=== PATIENT | female | born 1935 | race Caucasian/White ===

== ENCOUNTER 2017-02-23 19:53 | Observation (INO) | payer MEDICARE ==
[~2017-02-23] VITALS: Ht 170.2 cm; Wt 67.0 kg
[2017-02-23 19:56] VITALS: RESP 18
[2017-02-23] MEDS ORDERED: LISI-515 PO (20:24)
[2017-02-23] MEDS ORDERED: LEVO125T4 PO (20:24)
[2017-02-23] MEDS ORDERED: QUET1TAB7 PO (20:24)
[2017-02-23] MEDS ORDERED: AMLO5TAB2 PO (20:24)
[2017-02-23] MEDS ORDERED: DONE10TA7 PO (20:24)
[2017-02-23] MEDS ORDERED: SODIUM CHLOR 0.9% 1000 ML INJ 1,000 ML IV SCH (20:25)
[2017-02-23] MEDS ORDERED: HALO1TAB PO (20:29)
[2017-02-23] MEDS ORDERED: BENA2CRE2 TOPICAL (20:29)
[2017-02-23] MEDS ORDERED: LORA-474 PO (20:29)
[2017-02-23] MEDS ORDERED: SODIUM CHLORIDE 0.9% FLUSH 5 ML FLUSH IV FLUSH PRN (20:30)
--- NOTE | 2017-02-23 20:35 | PD ---
HPI Chief Complaint: Altered Mental Status Time Seen by Provider: 20:18 Travel History International Travel<30 days: No Contact w/Intl Traveler<30days: No Traveled to known affect area: No History of Present Illness HPI The patient is an 81 year old female who presents to the [facility] emergency department with a history of dementia that has been progressively worsening recently. The patient was not eating or drinking well at home. The patient was recently admitted to an assisted living facility for further assistance with her care according to family at the bedside. She has become increasingly agitated at the facility and refusing to eat or drink. She also refuses to take any medications. Family was called regarding the patient's agitation and the patient's was able to get her to take some of her medications prior to arrival. The patient is confused on arrival. According to the family the patient reportedly had an episode of incontinence was is unusual for her at the assisted living facility and also the urine smelled strong according to the staff. Otherwise, as the patient is confused on arrival , review of systems is limited to what is provided by the patient's family. According to them she has not had any vomiting or diarrhea. She has not been experiencing any cough or congestion. She has not had any noted fevers. They deny her having any new onset of one-sided weakness or slurred speech. [facility] Past Medical History Narrative Medical The patient's past medical history is significant for dementia, hypertension, hyperlipidemia Alzheimer's Disease: Yes High Cholesterol: Yes Hypertension: Yes : 3 Para: 3 Past Surgical History Narrative Surgical The patient's past surgical history is significant for a right knee replacement , hysterectomy, cholecystectomy. Cholecystectomy: Yes Hysterectomy: Yes Social History Alcohol Use: No Tobacco Use: No Substance Use: No Allergies-Medications (Allergen,Severity, Reaction): Coded Allergies: No Known Allergies (Unverified , 02/23/17) Reported Meds & Prescriptions Reported Meds & Active Scripts Active Reported Haloperidol 1 Mg Tab 1 Mg PO DAILY Benadryl Extra Strength Topical (Diphenhydramine-Zinc Topical) 2-0.1% Cream 1 Applic TOPICAL ONCE PRN Ativan (Lorazepam) 1 Mg Tab 1 Mg PO DAILY PRN Amlodipine (Amlodipine Besylate) 5 Mg Tab 5 Mg PO DAILY Lisinopril 20 Mg Tab 20 Mg PO DAILY Levothyroxine (Levothyroxine Sodium) 125 Mcg Tab 125 Mcg PO DAILY Quetiapine (Quetiapine Fumarate) 25 Mg Tab 25 Mg PO DAILY Donepezil 10 Mg Tab 10 Mg PO HS Review of Systems Except as stated in HPI: all other systems reviewed are Neg General / Constitutional: No: Fever Eyes: No: Visual changes HENT: No: Headaches Cardiovascular: No: Chest Pain or Discomfort Respiratory: No: Shortness of Breath Gastrointestinal: No: Nausea, Vomiting, Diarrhea, Abdominal Pain Genitourinary: Positive: Incontinence, No: Dysuria Skin: No Rash Neurologic: Positive: Change in Mentation, No: Weakness, Focal Abnormalities, Slurred Speech Psychiatric: Positive: Other (agitation) Endocrine: No: Polydipsia Hematologic/Lymphatic: No: Easy Bruising Physical Exam Narrative General: The patient is a well-developed well-nourished female in no acute distress. Head and Neck exam: Head is normocephalic atraumatic. Eyes: EOMI, pupils are equal round and reactive to light. Nose: Midline septum with pink mucous membranes Mouth: Dentition unremarkable. Dry mucus membranes. Posterior oropharynx is not erythematous. No tonsillar hypertrophy. Uvula midline. Airway patent. Neck: No palpable lymphadenopathy. No nuchal rigidity. No thyromegaly. Cardiovascular: Regular rate and rhythm without murmurs, gallops, or rubs. No pulse deficit to the extremities and simultaneous auscultation and palpation of her radial artery. Lungs: Clear to auscultation bilaterally. No wheezes, rhonchi, or rales. Abdomen: Soft, without tenderness to palpation in all 4 quadrants of the abdomen. No guarding, rebound, or rigidity. Normal bowel sounds are audible. No tenderness on palpation of McBurney's point. Negative Windsor sign. Extremities: No clubbing, cyanosis, or edema. 2+ pulses in all 4 extremities. No calf tenderness on palpation. Back: No costovertebral angle tenderness to palpation. Neurologic Exam: Cranial nerves 2-12 were intact on exam. Strength is 5/5 in all 4 extremities. No sensory deficits noted. Skin Exam: No rash noted. Intact skin that is warm and dry. Poor skin turgor. Data Data Last Documented VS Vital Signs Date Time Temp Pulse Resp B/P Pulse Ox O2 Delivery O2 Flow Rate FiO2 02/23/17 22:59 75 16 114/64 99 Room Air Orders Electrocardiogram (02/23/17 20:25) Ammonia (02/23/17 20:25) Complete Blood Count With Diff (02/23/17 20:25) Comprehensive Metabolic Panel (02/23/17 20:25) Creatine Kinase (Cpk) (02/23/17 20:25) Prothrombin Time / Inr (Pt) (02/23/17 20:25) Act Partial Throm Time (Ptt) (02/23/17 20:25) Troponin I (02/23/17 20:25) Thyroid Stimulating Hormone (02/23/17 20:25) Urinalysis - C+S If Indicated (02/23/17 20:25) Chest, Single Ap (02/23/17 20:25) Blood Glucose (02/23/17 20:25) Ecg Monitoring (02/23/17 20:25) Iv Access Insert/Monitor (02/23/17 20:25) Cath For Specimen (02/23/17 20:25) Oximetry (02/23/17 20:25) Sodium Chloride 0.9% Flush (Ns Flush) (02/23/17 20:30) Sodium Chlor 0.9% 1000 Ml Inj (Ns 1000 M (02/23/17 20:25) Lorazepam Inj (Ativan Inj) (02/23/17 21:00) Sodium Chlorid 0.9% 500 Ml Inj (Ns 500 M (02/23/17 21:00) Lorazepam Inj (Ativan Inj) (02/23/17 20:52) Urine Culture (02/23/17 21:00) Sodium Chlor 0.9% 250 Ml Inj (Ns 250 Ml (02/23/17 22:45) Admit Order (Ed Use Only) (02/23/17 23:12) Labs Laboratory Tests Test 02/23/17 02/23/17 20:55 21:00 White Blood Count 4.6 TH/MM3 Red Blood Count 4.71 MIL/MM3 Hemoglobin 12.6 GM/DL Hematocrit 39.8 % Mean Corpuscular Volume 84.5 FL Mean Corpuscular Hemoglobin 26.8 PG Mean Corpuscular Hemoglobin 31.7 % Concent Red Cell Distribution Width 15.8 % Platelet Count 165 TH/MM3 Mean Platelet Volume 10.1 FL Neutrophils (%) (Auto) 58.8 % Lymphocytes (%) (Auto) 28.6 % Monocytes (%) (Auto) 7.0 % Eosinophils (%) (Auto) 3.0 % Basophils (%) (Auto) 2.6 % Neutrophils # (Auto) 2.7 TH/MM3 Lymphocytes # (Auto) 1.3 TH/MM3 Monocytes # (Auto) 0.3 TH/MM3 Eosinophils # (Auto) 0.1 TH/MM3 Basophils # (Auto) 0.1 TH/MM3 CBC Comment DIFF FINAL Differential Comment Prothrombin Time 10.7 SEC Prothromb Time International 1.0 RATIO Ratio Activated Partial 26.6 SEC Thromboplast Time Sodium Level 144 MEQ/L Potassium Level 3.9 MEQ/L Chloride Level 107 MEQ/L Carbon Dioxide Level 26.8 MEQ/L Anion Gap 10 MEQ/L Blood Urea Nitrogen 43 MG/DL Creatinine 1.47 MG/DL Estimat Glomerular Filtration 34 ML/MIN Rate Random Glucose 91 MG/DL Calcium Level 10.0 MG/DL Total Bilirubin 0.4 MG/DL Aspartate Amino Transf 14 U/L (AST/SGOT) Alanine Aminotransferase 16 U/L (ALT/SGPT) Alkaline Phosphatase 75 U/L Ammonia LESS THAN 10 MCMOL/L Total Creatine Kinase 52 U/L Troponin I LESS THAN 0.02 NG/ML Total Protein 8.3 GM/DL Albumin 4.0 GM/DL Thyroid Stimulating Hormone 15.800 uIU/ML 3rd Gen Urine Color YELLOW Urine Turbidity CLEAR Urine pH 5.5 Urine Specific [place] 1.023 Urine Protein TRACE mg/dL Urine Glucose (UA) NEG mg/dL Urine Ketones 10 mg/dL Urine Occult Blood NEG Urine Nitrite NEG Urine Bilirubin NEG Urine Urobilinogen LESS THAN 2.0 MG/DL Urine Leukocyte Esterase NEG Urine RBC LESS THAN 1 /hpf Urine WBC 1 /hpf Urine Squamous Epithelial 1 /hpf Cells Urine Bacteria RARE /hpf Microscopic Urinalysis Comment CATH-CULTURE IND MDM Medical Decision Making Medical Screen Exam Complete: Yes Emergency Medical Condition: Yes Medical Record Reviewed: Yes Interpretation(s) Last Impressions Chest X-Ray 02/23/172024 Signed Impressions: Service Date/Time: Thursday, February 23, 2017 20:40 - CONCLUSION: No acute disease. Salvador Enriquez MD Differential Diagnosis Dehydration, versus electrolyte derangement, versus urinary tract infection, versus other infectious process such as pneumonia Narrative Course During the course of the patients emergency department visit, the patients history, examination, and differential diagnosis were reviewed with the patient. The patient had IV access obtained and blood work sent for analysis. The patient was placed on a personnel monitor with oximetry and blood pressure monitoring. An EKG was done on arrival. The patient's EKG shows a sinus bradycardia rate 57, no acute ST segment elevation or depression. T waves are inverted in V1, lead 3, QRS duration 81 ms, QTC 389 ms. The patient was initially provided normal saline a 500 mL bolus 1. The patient was given Ativan 0.5 mg IV for acute agitation. The patients laboratory studies were reviewed and remarkable for a CBC that shows a white count of 4.6, HemoCue 12.6, platelets 165 with 2.6 basophils, CMP is remarkable for a BUN of 43, creatinine 1.47, CPK 52, troponin I less than 0.02, ammonia level less than 10, TSH is elevated at 15.8. From reviewing the record the patient does have a history of hypothyroid disorder and is reportedly on Synthroid 125 g. Elevated TSH may be related to medication noncompliance, versus the fact that the patient needs an increase in her dose. Urinalysis shows 10 ketones consistent with dehydration otherwise unremarkable. PT PTT within normal limits. Radiology studies were reviewed and remarkable for a chest x-ray that shows no acute abnormality. I spoke to the patient's hospice nurse. The patient has been newly involved in hospice care. We discussed admission for observation. They report that the hospice care nurse will be out to see the patient again tomorrow at the assisted living facility when she is discharged back. The patients results were discussed with the patient, including the plan of care. I explained that further testing and/ or monitoring is indicated based on the patients history, examination, and/ or laboratory findings. Therefore, I recommended admission for additional evaluation. The patient expressed understanding and was agreeable with this plan. The patient was admitted to the hospital in stable condition and [facility] Physician Communication Physician Communication I spoke to to the hospice care center regarding this patient's evaluation. They agreed that the patient should be admitted for observation and that they will be able to assist with the patient's care back at the assisted living facility. The patient's case was discussed with Dr. Shabazz who did agree to admit the patient for further evaluation and treatment at this time. Diagnosis Primary Impression: Altered mental status Qualified Code: R41.0 - Disorientation Additional Impressions: Dehydration Elevated TSH Hypothyroid Qualified Code: E03.9 - Hypothyroidism, unspecified type Admitting Information Admitting Physician Requests: Observation Rosalina Vines MD Feb 23, 2017 20:35
[2017-02-23] MEDS ORDERED: LORazepam 2 MG/ML VIAL ONE (20:52)
[2017-02-23] MEDS ORDERED: SODIUM CHLORID 0.9% 500 ML INJ 500 ML IV ONE (21:00)
[2017-02-23] MEDS ORDERED: LORazepam 2 MG/ML VIAL IV PUSH ONE (21:00)
--- NOTE | 2017-02-23 21:06 | RADRPT ---
EXAM DATE/TIME: 02/23/2017 20:40 [place] COMPARISON: No previous studies available for comparison. INDICATIONS : Altered mental status. MEDICAL HISTORY : Hypercholesterolemia. Hypertension Alzeheimers disease. SURGICAL HISTORY : Hysterectomy. Cholecystectomy. ENCOUNTER: Initial ACUITY: 1 day PAIN SCORE: Non-responsive. LOCATION: Bilateral chest FINDINGS: A single view of the chest demonstrates the lungs to be symmetrically aerated without evidence of mas s, infiltrate or effusion. The cardiomediastinal contours are unremarkable. Osseous structures are intact. Clips are seen in the right upper quadrant of the abdomen. CONCLUSION: No acute disease. Salvador Enriquez MD on February 23, 2017 at 21:04 Board Certified Radiologist. This report was verified electronically.
[2017-02-23 21:08] VITALS: O2SAT 97
[2017-02-23 21:19] LABS: AUTOMATED NEUTROPHIL # 2.7 TH/MM3 (1.8-7.7); BASOPHIL # 0.1 TH/MM3 (0-0.2); BASOPHIL % 2.6 % (0.0-2.0); EOSINOPHIL # 0.1 TH/MM3 (0-0.4); HEMATOCRIT 39.8 % (35.0-46.0); HEMO FLAGS DIFF FINAL; LYMPH % 28.6 % (9.0-44.0); LYMPHOCYTE # 1.3 TH/MM3 (1.0-4.8); MEAN CELL VOLUME 84.5 FL (80.0-100.0); MEAN CORPUSCULAR HEMOGLOBIN 26.8 PG (27.0-34.0); MEAN CORPUSCULAR HGB CONC 31.7 % (32.0-36.0); NEUT % 58.8 % (16.0-70.0); PLATELET COUNT 165 TH/MM3 (150-450); RED BLOOD COUNT 4.71 MIL/MM3 (4.00-5.30); RED CELL DISTRIBUTION WIDTH 15.8 % (11.6-17.2); WHITE BLOOD COUNT 4.6 TH/MM3 (4.0-11.0)
[2017-02-23 21:26] LABS: BACTERIA, URINE RARE /hpf; BLOOD, URINE NEG (NEG); GLUCOSE,URINE NEG (NEG); KETONE, URINE 10 mg/dL (NEG); NITRITE,URINE NEG (NEG); PH, URINE 5.5 (5.0-8.5); SQUAMOUS EPITHELIAL CELL URINE 1 /hpf (0-5); URINE COLOR YELLOW (YELLW/STRAW)
[2017-02-23 21:29] LABS: APTT (PATIENT) 26.6 SEC (24.3-30.1); PROTHROMBIN TIME - PATIENT 10.7 SEC (9.8-11.6)
[2017-02-23 21:37] LABS: COMMENT (UR) CATH-CULTURE IND; CULTURE IF INDICATED CATH CULTURE IND
[2017-02-23 21:50] LABS: CHLORIDE 107 MEQ/L (98-107); POTASSIUM 3.9 MEQ/L (3.5-5.1); SODIUM (NA) 144 MEQ/L (136-145)
[2017-02-23] MEDS ORDERED: SODIUM CHLOR 0.9% 250 ML INJ 250 ML IV ONE (22:45)
[2017-02-23 22:56] LABS: ALKALINE PHOSPHATASE 75 U/L (45-117); ALT (GPT) 16 U/L (10-53); ANION GAP 10 MEQ/L (5-15); AST (GOT) 14 U/L (15-37); BICARBONATE 26.8 MEQ/L (21.0-32.0); BLOOD UREA NITROGEN 43 MG/DL (7-18); GLOMERULAR FILTRATION RATE 34 ML/MIN (>89); TOTAL BILIRUBIN ADULT 0.4 MG/DL (0.2-1.0)
[2017-02-23 22:59] VITALS: BP 114/64; PULSE 75; RESP 16; O2SAT 99
[2017-02-23 23:01] LABS: CREATINE KINASE 52 U/L (26-192)
[2017-02-23] MEDS ORDERED: SODIUM CHLORIDE 0.9% FLUSH 10 ML FLUSH IV FLUSH PRN (23:30)
[2017-02-23] MEDS ORDERED: NALOXONE HCL 0.4 MG/ML AMP IV PRN (23:30)
[2017-02-24 00:41] VITALS: BP 101/60; PULSE 63; RESP 16; TEMP 96.6; O2SAT 95
[2017-02-24 03:03] VITALS: PULSE 62
[2017-02-24 08:05] VITALS: BP 114/61; PULSE 61; RESP 16; TEMP 98.5; O2SAT 96
--- NOTE | 2017-02-24 08:28 | HHI.HP ---
[facility] Service [facility] Primary Care Physician Unknown Admission Diagnosis Dehydration Diagnoses: Chief Complaint: AMS Travel History International Travel<30 Days: No Contact w/Intl Traveler <30 Da: No Traveled to Known Affected Are: No History of Present Illness Written by Cecelia Diaz, acting as scribe for Dr. Chatman on 02/24/17 at 08: 28. 81-year-old female with history of dementia, hypothyroidism, hypertension, presents from [facility] for altered mental status. Currently the patient is seen in observation, she is very drowsy, snoring, and does not participate in any conversation therefore history is very limited, mostly obtained from family and EMR. Patient's daughter is at bedside who assists with the history. The daughter reports the patient's Hossein is [id number]; he started having a difficult time taking care of her, and he found placement for her at an [facility] 4days ago. Since she's been at the [facility], the patient has not been doing well. She has been refusing her medications occasionally, not eating well, not sleeping well, and not participating in activities. The daughter reports she is now much more confused than her baseline. Because of her not taking her medications and not sleeping well, the [facility] started her on an ABH topical gel which includes Ativan, Benadryl, and Haldol. They also increased her Seroquel to 50mg hs. At baseline 1 week ago, the patient ambulates independently without any assistive device; and she is typically not oriented to place or time but does recognize her Hossein. Review of Systems ROS Limitations: Altered Mental Status, Poor Historian Past Family Social History Past Medical History Hypertension Hypothyroidism Dementia Past Surgical History Hysterectomy Right Knee Arthroplasty Cataract surgery Cholecystectomy Reported Medications ABH Gel (which includes Haldol, Benadryl, and Ativan) Amlodipine (Amlodipine Besylate) 5 Mg Tab 5 Mg PO DAILY Lisinopril 20 Mg Tab 20 Mg PO DAILY Levothyroxine (Levothyroxine Sodium) 125 Mcg Tab 125 Mcg PO DAILY Quetiapine (Quetiapine Fumarate) 25 Mg Tab 25 Mg PO DAILY Donepezil 10 Mg Tab 10 Mg PO HS Allergies: Coded Allergies: No Known Allergies (Unverified , 02/24/17) Active Ordered Medications Current Medications Medications (Trade) Dose Ordered Sig/King Route Start Time Stop Time Status Last Admin (NS Flush) 2 ml UNSCH PRN IV FLUSH 02/23/17 23:30 (NS Flush) 2 ml BID IV FLUSH 02/24/17 09:00 (Narcan Inj) 0.4 mg UNSCH PRN IV 02/23/17 23:30 (Aricept) 10 mg HS PO 02/24/17 21:00 (Haldol) 1 mg DAILY PO 02/24/17 09:00 (Synthroid) 125 mcg DAILY@06 PO 02/24/17 07:09 (SEROquel) 25 mg HS PO 02/24/17 21:00 Family History Father with liver cancer Mother lived to age 104 Social History Denies any tobacco, alcohol, or illicit drug use Residing at an [facility] Ambulates independently Physical Exam Vital Signs Vital Signs Date Time Temp Pulse Resp B/P Pulse Ox O2 Delivery O2 Flow Rate FiO2 02/24/17 08:05 98.5 61 16 114/61 96 02/24/17 03:03 62 02/24/17 00:41 96.6 63 16 101/60 95 02/23/17 22:59 75 16 114/64 99 Room Air 02/23/17 21:08 97 Room Air 02/23/17 19:56 18 Room Air Physical Exam GENERAL: Well-nourished, well-developed elderly female patient in [facility]. SKIN: Warm and dry. No rash. HEAD: Normocephalic. Atraumatic. EYES: Pupils equal and round. No scleral icterus. No injection or drainage. ENT: No nasal bleeding or discharge. Mucous membranes pink and moist. NECK: Supple. Trachea midline. CARDIOVASCULAR: Regular rate and rhythm. S1, S2 noted. No murmur appreciated. RESPIRATORY: No accessory muscle use. Clear to auscultation. Breath sounds equal bilaterally. GASTROINTESTINAL: Abdomen soft, non-tender, nondistended. Normoactive bowel sounds x4. MUSCULOSKELETAL: No obvious deformities. Extremities without clubbing, cyanosis , or edema. NEUROLOGICAL: No obvious cranial nerve deficits. Motor grossly within normal limits. Speech not assessed. No obvious facial droop/lid lag. PSYCHIATRIC: Drowsy; insight and judgment poor. Laboratory Laboratory Tests Test 02/23/17 02/23/17 20:55 21:00 White Blood Count 4.6 Red Blood Count 4.71 Hemoglobin 12.6 Hematocrit 39.8 Mean Corpuscular Volume 84.5 Mean Corpuscular Hemoglobin 26.8 Mean Corpuscular Hemoglobin 31.7 Concent Red Cell Distribution Width 15.8 Platelet Count 165 Mean Platelet Volume 10.1 Neutrophils (%) (Auto) 58.8 Lymphocytes (%) (Auto) 28.6 Monocytes (%) (Auto) 7.0 Eosinophils (%) (Auto) 3.0 Basophils (%) (Auto) 2.6 Neutrophils # (Auto) 2.7 Lymphocytes # (Auto) 1.3 Monocytes # (Auto) 0.3 Eosinophils # (Auto) 0.1 Basophils # (Auto) 0.1 CBC Comment DIFF FINAL Differential Comment Prothrombin Time 10.7 Prothromb Time International 1.0 Ratio Activated Partial 26.6 Thromboplast Time Sodium Level 144 Potassium Level 3.9 Chloride Level 107 Carbon Dioxide Level 26.8 Anion Gap 10 Blood Urea Nitrogen 43 Creatinine 1.47 Estimat Glomerular Filtration 34 Rate Random Glucose 91 Calcium Level 10.0 Total Bilirubin 0.4 Aspartate Amino Transf 14 (AST/SGOT) Alanine Aminotransferase 16 (ALT/SGPT) Alkaline Phosphatase 75 Ammonia LESS THAN 10 Total Creatine Kinase 52 Troponin I LESS THAN 0.02 Total Protein 8.3 Albumin 4.0 Thyroid Stimulating Hormone 15.800 3rd Gen Urine Color YELLOW Urine Turbidity CLEAR Urine pH 5.5 Urine Specific [place] 1.023 Urine Protein TRACE Urine Glucose (UA) NEG Urine Ketones 10 Urine Occult Blood NEG Urine Nitrite NEG Urine Bilirubin NEG Urine Urobilinogen LESS THAN 2.0 Urine Leukocyte Esterase NEG Urine RBC LESS THAN 1 Urine WBC 1 Urine Squamous Epithelial 1 Cells Urine Bacteria RARE Microscopic Urinalysis Comment CATH-CULTURE IND Date/Time Procedure Status Source Growth 02/23/17 21:00 Urine Culture Received Urine Catheterized Urine Pending Result Diagram: 02/23/17205402/23/172054 Imaging Last Impressions Chest X-Ray 02/23/172024 Signed Impressions: Service Date/Time: Thursday, February 23, 2017 20:40 - CONCLUSION: No acute disease. Salvador Enriquez MD Assessment and Plan Problem List: (1) Altered mental status ICD Code: R41.82 Status: Acute (2) Dehydration ICD Code: E86.0 Status: Acute (3) Elevated TSH ICD Code: R94.6 Status: Acute (4) TACOS (acute kidney injury) ICD Code: N17.9 Status: Acute Assessment and Plan 81-year-old female with history of dementia, hypothyroidism, hypertension, presents from [facility] for altered mental status. Toxic and Metabolic Encephalopathy: patient presented with AMS, suspect multifactorial secondary to new medication ABH gel (Ativan/Benadryl/Haldol) and dehydration, in addition to poor sleep, poor oral intake, and not taking medications. -afebrile, no leukocytosis, and UA and CXR unremarkable; no signs of infection -Head CT images reviewed, no acute findings -discontinue ABH gel -give IVF hydration -monitor neuro checks -continue patient's seroquel 50mg hs -swallow eval with ST TACOS: Cr 1.47, no previous labs to compare, suspect secondary to dehydration with recent poor oral intake. -Give IVF -avoid nephrotoxins -repeat BMP -encourage oral intake Dementia: not at baseline (see above) -continue patient's Aricept -hold sedating medications, especially benzodiazepines in elderly with dementia -monitor for improvement Hypothyroidism with Elevated TSH: suspect secondary to noncompliance with levothyroxine, TSH over 15. -check T3/free T4 -continue patient's Synthroid -repeat TSH in 6 weeks Hypertension: blood pressure currently borderline hypotensive with BP 101/60. Suspect secondary to dehydration. -hold patient's lisinopril and amlodipine for now -monitor BP, restart antihypertensives as needed. DVT Prophylaxis: teds/SCDs Case management to assist with discharge planning, will likely return to [facility] at discharge. This note was transcribed by deo [Cecelia Diaz]. I, Dr. Italo Chatman personally performed the history, physical exam, and medical decision making; and confirmed the accuracy of the information in the transcribed note. Authenticated by Dr. Italo Chatman on 02/24/17 at 16:03. Discussed Condition With Patient, Patient's daughter at bedside, RN, community development manager Problem Qualifiers (1) Altered mental status: Qualified Code: R41.0 - Disorientation Cecelia Diaz PA-C Feb 24, 2017 8:28 am Italo Chatman MD Feb 24, 2017 4:03 pm
[2017-02-24] MEDS: SODIUM CHLOR 0.9% 1000 ML INJ 1,000 ML IV SCH ×3 (08:45→18:17)
[2017-02-24] MEDS ORDERED: HALOPERIDOL 1 MG TAB PO SCH (09:00)
[2017-02-24 09:17] LABS: AUTOMATED NEUTROPHIL # 2.3 TH/MM3 (1.8-7.7); BASOPHIL % 1.3 % (0.0-2.0); EOSINOPHIL # 0.2 TH/MM3 (0-0.4); HEMATOCRIT 37.5 % (35.0-46.0); HEMO FLAGS DIFF FINAL; LYMPH % 25.7 % (9.0-44.0); MEAN CELL VOLUME 84.4 FL (80.0-100.0); MEAN CORPUSCULAR HEMOGLOBIN 26.8 PG (27.0-34.0); MEAN CORPUSCULAR HGB CONC 31.8 % (32.0-36.0); MONO % 7.4 % (0.0-8.0); NEUT % 61.6 % (16.0-70.0); PLATELET COUNT 153 TH/MM3 (150-450); RED BLOOD COUNT 4.44 MIL/MM3 (4.00-5.30); WHITE BLOOD COUNT 3.8 TH/MM3 (4.0-11.0)
[2017-02-24 09:48] LABS: FREE T3 1.23 PG/ML (2.18-3.98); FREE T4 1.23 NG/DL (0.76-1.46)
[2017-02-24 10:18] LABS: BICARBONATE 27.2 MEQ/L (21.0-32.0); POTASSIUM 3.9 MEQ/L (3.5-5.1)
[2017-02-24] MEDS: SODIUM CHLORIDE 0.9% FLUSH 10 ML FLUSH IV FLUSH SCH ×2 (10:25→21:00)
[2017-02-24] MEDS: LEVOTHYROXINE SODIUM 125 MCG TAB PO SCH (10:39)
[2017-02-24] MEDS ORDERED: HALOPERIDOL LACTATE 5 MG/ML AMP IM ONE ×2 (11:45→12:00)
[2017-02-24 15:48] VITALS: BP 154/72; PULSE 84; RESP 16; O2SAT 96
[2017-02-24] MEDS: DONEPEZIL HCL 5 MG TAB PO SCH (18:15)
[2017-02-24] MEDS: QUEtiapine FUMARATE 25 MG TAB PO SCH (18:15)
[2017-02-24 19:49] VITALS: BP 128/86; PULSE 68; RESP 16; TEMP 98.7; O2SAT 90
[2017-02-24] MEDS: HALOPERIDOL LACTATE 5 MG/ML AMP IM PRN (20:02)
[2017-02-24] MEDS ORDERED: DONEPEZIL HCL 5 MG TAB PO SCH (21:00)
[2017-02-24] MEDS ORDERED: QUEtiapine FUMARATE 25 MG TAB PO SCH ×2 (21:00)
--- NOTE | 2017-02-24 23:19 | EKG ---
Date Performed: 02/23/2017 Time Performed: 20:58:13 PTAGE: 81 years EKG: SINUS BRADYCARDIA BORDERLINE ECG NO PREVIOUS TRACING DOCTOR: Angelique Mooney Interpretating Date/Time 02/24/2017 23:18:05
[2017-02-25] MEDS: SODIUM CHLOR 0.9% 1000 ML INJ 1,000 ML IV SCH ×3 (01:16→20:52)
[2017-02-25] MEDS: HALOPERIDOL LACTATE 5 MG/ML AMP IM PRN (06:03)
[2017-02-25 06:09] VITALS: BP 145/74; PULSE 91; RESP 18; O2SAT 98
[2017-02-25] MEDS: LEVOTHYROXINE SODIUM 125 MCG TAB PO SCH (06:09)
[2017-02-25 08:32] VITALS: BP 130/62; PULSE 60; RESP 16; TEMP 97.9; O2SAT 100
[2017-02-25] MEDS: SODIUM CHLORIDE 0.9% FLUSH 10 ML FLUSH IV FLUSH SCH ×2 (09:00→20:50)
[2017-02-25 10:53] VITALS: BP 128/59; PULSE 73; RESP 16; TEMP 98.2; O2SAT 96
--- NOTE | 2017-02-25 13:27 | HHI.PR ---
Subjective Remarks Follow up for AMS. The patient is currently sleeping, awakens to light touch. She states "oh I just want to sleep a little longer". She denies any pain. Denies any medical complaints. , daughter, granddaughter at bedside, discussed extensively. Patient did drink all of her Ensure shake this morning however did not touch any of her food. Patient received Haldol at 8pm last night and again at 6am today for agitation. Family concerned patient will become agitated at the NED if discharged today and the NED would not be able to give her IM Haldol. Discussed discontinuing haldol for now and monitoring the patient again overnight, trying to avoid Haldol if possible. Family is comfortable with this plan. Family requesting if patient can be discharged early tomorrow before lunch time if she is stable. Objective Vitals Vital Signs Date Time Temp Pulse Resp B/P Pulse Ox O2 Delivery O2 Flow Rate FiO2 02/25/17 10:53 98.2 73 16 128/59 96 02/25/17 08:32 97.9 60 16 130/62 100 02/25/17 06:09 91 18 145/74 98 02/24/17 19:49 98.7 68 16 128/86 90 02/24/17 15:48 84 16 154/72 96 I/O 02/24/17 02/24/17 02/24/17 02/25/17 02/25/17 02/25/17 07:00 15:00 23:00 07:00 15:00 23:00 Intake Total 950 ml Output Total 200 ml Balance 950 ml -200 ml Intake IV Total 950 ml Output Urine Total 200 ml # Bowel Movements 0 Result Diagram: 02/24/17 0859 02/24/17 0859 Imaging Last Impressions Chest X-Ray 02/23/172024 Signed Impressions: Service Date/Time: Thursday, February 23, 2017 20:40 - CONCLUSION: No acute disease. Salvador Enriquez MD Objective Remarks GENERAL: Well-nourished, well-developed elderly female patient in [facility]. SKIN: Warm and dry. No rash. HEENT: Normocephalic. Atraumatic.Pupils equal and round. Mucous membranes pink and moist. NECK: Supple. Trachea midline. CARDIOVASCULAR: Regular rate and rhythm. S1, S2 noted. No murmur appreciated. RESPIRATORY: No accessory muscle use. Clear to auscultation. Breath sounds equal bilaterally. GASTROINTESTINAL: Abdomen soft, non-tender, nondistended. Normoactive bowel sounds x4. MUSCULOSKELETAL: No obvious deformities. Extremities without clubbing, cyanosis , or edema. NEUROLOGICAL: No obvious cranial nerve deficits. Motor grossly within normal limits. Speech normal. No obvious facial droop/lid lag. PSYCHIATRIC: Drowsy; insight and judgment poor. Medications and IVs Current Medications Medications (Trade) Dose Ordered Sig/King Route Start Time Stop Time Status Last Admin (NS Flush) 2 ml UNSCH PRN IV FLUSH 02/23/17 23:30 (NS Flush) 2 ml BID IV FLUSH 02/24/17 09:00 02/24/17 10:25 (Narcan Inj) 0.4 mg UNSCH PRN IV 02/23/17 23:30 Levothyroxine Sodium 125 mcg 125 mcg DAILY@06 PO 02/24/17 07:09 02/25/17 06:09 (NS 1000 ml Inj) 1,000 ml @ 100 mls/hr Q10H IV 02/24/17 08:45 02/25/17 14:57 (Aricept) 10 mg DAILY@19 PO 02/24/17 19:00 02/24/17 18:15 (SEROquel) 50 mg DAILY@19 PO 02/24/17 19:00 02/24/17 18:15 A/P Problem List: (1) Altered mental status ICD Code: R41.82 Status: Acute (2) Dehydration ICD Code: E86.0 Status: Acute (3) Elevated TSH ICD Code: R94.6 Status: Acute (4) TACOS (acute kidney injury) ICD Code: N17.9 Status: Acute Assessment and Plan 81-year-old female with history of dementia, hypothyroidism, hypertension, presents from [facility] for altered mental status. Toxic and Metabolic Encephalopathy: patient presented with AMS, suspect multifactorial secondary to new medication ABH gel (Ativan/Benadryl/Haldol) and dehydration, in addition to poor sleep, poor oral intake, and not taking medications. -afebrile, no leukocytosis, and UA and CXR unremarkable; no signs of infection -Head CT images reviewed, no acute findings -discontinue ABH gel -give IVF hydration -monitor neuro checks -continue patient's seroquel 50mg hs -swallow eval with ST -patient is very drowsy after receiving multiple doses of IM Haldol overnight , will discontinue for now and avoid if possible -discussed with family that if more haldol is needed for agitation, we can also try to increase seroquel dosing to 25mg in am and 50mg at bedtime TACOS: Cr 1.47, no previous labs to compare, suspect secondary to dehydration with recent poor oral intake. -Give IVF -avoid nephrotoxins -repeat BMP shows improvement with Cr 1.23 -encourage oral intake Dementia: not at baseline (see above) -continue patient's Aricept -hold sedating medications, especially benzodiazepines in elderly with dementia -monitor for improvement Hypothyroidism with Elevated TSH: suspect secondary to noncompliance with levothyroxine, TSH over 15. -T3 low, T4 wnl -continue patient's Synthroid -repeat TSH in 6 weeks Hypertension: blood pressure currently borderline hypotensive with BP 101/60. Suspect secondary to dehydration. -hold patient's lisinopril and amlodipine for now -monitor BP, restart antihypertensives as needed. DVT Prophylaxis: teds/SCDs Case management to assist with discharge planning, will likely return to [facility] at discharge. I spent 35 minutes [id number] with the patient or on the medina discussing the patient's disposition, prognosis, and plan of care with her caregivers. Over half the time spent was devoted to counseling the patient regarding placement in coordinating care with caregivers and case management. Discharge Planning Hopefully discharge back to [facility] tomorrow morning if no acute events overnight and patient continues to eat. Problem Qualifiers (1) Altered mental status: Qualified Code: R41.0 - Disorientation Cecelia Diaz PA-C Feb 25, 2017 1:27 pm
[2017-02-25 16:27] VITALS: BP 128/74; PULSE 82; RESP 16; TEMP 97.8; O2SAT 95
[2017-02-25] MEDS: DONEPEZIL HCL 5 MG TAB PO SCH ×2 (18:33→20:50)
[2017-02-25] MEDS: QUEtiapine FUMARATE 25 MG TAB PO SCH ×2 (18:33→20:50)
[2017-02-25 20:52] VITALS: BP 143/83; PULSE 81; RESP 18; O2SAT 96
[2017-02-26 00:50] VITALS: BP 128/82; PULSE 79; RESP 18; TEMP 98.2; O2SAT 95
[2017-02-26] MEDS: LEVOTHYROXINE SODIUM 125 MCG TAB PO SCH (06:15)
[2017-02-26 06:27] VITALS: BP 160/74; PULSE 69; RESP 18; TEMP 98.2; O2SAT 96
[2017-02-26 08:34] LABS: HEMATOCRIT 37.3 % (35.0-46.0); MEAN CELL VOLUME 83.6 FL (80.0-100.0); MEAN CORPUSCULAR HEMOGLOBIN 27.1 PG (27.0-34.0); MEAN CORPUSCULAR HGB CONC 32.4 % (32.0-36.0); PLATELET COUNT 115 TH/MM3 (150-450); RED BLOOD COUNT 4.46 MIL/MM3 (4.00-5.30); REVIEW FLAG FINAL; WHITE BLOOD COUNT 3.8 TH/MM3 (4.0-11.0)
[2017-02-26 09:09] LABS: BICARBONATE 22.2 MEQ/L (21.0-32.0); POTASSIUM 3.4 MEQ/L (3.5-5.1)
[2017-02-26] MEDS ORDERED: QUET1TAB7 PO (09:40)
--- NOTE | 2017-02-26 09:47 | HHI.DS ---
Discharge Summary Admission Date Feb 23, 2017 at 23:20 Discharge Date: Feb 26, 2017 Admitting Diagnosis Dehydration (1) Altered mental status ICD Code: R41.82 Diagnosis: Principal (2) Dehydration ICD Code: E86.0 Diagnosis: Principal (3) Elevated TSH ICD Code: R94.6 Diagnosis: Secondary (4) TACOS (acute kidney injury) ICD Code: N17.9 Diagnosis: Secondary Procedures None Brief History - From Admission 81-year-old female with history of dementia, hypothyroidism, hypertension, presents from [facility] for altered mental status. Currently the patient is seen in observation, she is very drowsy, snoring, and does not participate in any conversation therefore history is very limited, mostly obtained from family and EMR. Patient's daughter is at bedside who assists with the history. The daughter reports the patient's Hossein is [id number]; he started having a difficult time taking care of her, and he found placement for her at an [facility] 4days ago. Since she's been at the NED, the patient has not been doing well. She has been refusing her medications occasionally, not eating well, not sleeping well, and not participating in activities. The daughter reports she is now much more confused than her baseline. Because of her not taking her medications and not sleeping well, the NED started her on an ABH topical gel which includes Ativan, Benadryl, and Haldol. They also increased her Seroquel to 50mg hs. At baseline 1 week ago, the patient ambulates independently without any assistive device; and she is typically not oriented to place or time but does recognize her Hossein. CBC/BMP: 02/26/17 0818 02/26/17 0818 Significant Findings Laboratory Tests Test 02/23/17 02/23/17 02/24/17 02/26/17 20:55 21:00 08:59 08:18 Mean Corpuscular Hemoglobin 26.8 PG 26.8 PG (27.0-34.0) (27.0-34.0) Mean Corpuscular Hemoglobin 31.7 % 31.8 % Concent (32.0-36.0) (32.0-36.0) Basophils (%) (Auto) 2.6 % (0.0-2.0) Blood Urea Nitrogen 43 MG/DL (7-18) 30 MG/DL (7-18) Creatinine 1.47 MG/DL 1.23 MG/DL 1.11 MG/DL (0.50-1.00) (0.50-1.00) (0.50-1.00) Estimat Glomerular Filtration 34 ML/MIN (>89) 42 ML/MIN (>89) 47 ML/MIN (>89) Rate Aspartate Amino Transf 14 U/L (15-37) (AST/SGOT) Ammonia LESS THAN 10 MCMOL/L (11-32) Troponin I LESS THAN 0.02 NG/ML (0.02-0.05) Total Protein 8.3 GM/DL (6.4-8.2) Thyroid Stimulating Hormone 15.800 uIU/ML 3rd Gen (0.358-3.740) Urine Ketones 10 mg/dL (NEG) Urine Bacteria RARE /hpf (NONE) White Blood Count 3.8 TH/MM3 3.8 TH/MM3 (4.0-11.0) (4.0-11.0) Chloride Level 111 MEQ/L 113 MEQ/L (98-107) (98-107) Free Triiodothyronine (T3) 1.23 PG/ML pg/dL (2.18-3.98) Platelet Count 115 TH/MM3 (150-450) Potassium Level 3.4 MEQ/L (3.5-5.1) Imaging Last Impressions Chest X-Ray 02/23/172024 Signed Impressions: Service Date/Time: Thursday, February 23, 2017 20:40 - CONCLUSION: No acute disease. Salvador Enriquez MD PE at Discharge GENERAL: Well-nourished, well-developed elderly female patient in [facility]. SKIN: Warm and dry. No rash. HEENT: Normocephalic. Atraumatic.Pupils equal and round. Mucous membranes pink and moist. NECK: Supple. Trachea midline. CARDIOVASCULAR: Regular rate and rhythm. S1, S2 noted. No murmur appreciated. RESPIRATORY: No accessory muscle use. Clear to auscultation. Breath sounds equal bilaterally. GASTROINTESTINAL: Abdomen soft, non-tender, nondistended. Normoactive bowel sounds x4. MUSCULOSKELETAL: No obvious deformities. Extremities without clubbing, cyanosis , or edema. NEUROLOGICAL: Awake and alert. No obvious cranial nerve deficits. Motor grossly within normal limits. Speech normal. No obvious facial droop/lid lag. PSYCHIATRIC: Confused; insight and judgment poor. Pt update on day of discharge The patient remains pleasantly confused. She is disoriented, but voices no specific complaints. She states that she is eating a little. She denies any pain. Discussed with RN, no further episodes of agitation overnight. Patient has been compliant with her medications when given. The patient worked with speech therapy and reportedly no restrictions were recommended. Hospital Course 81-year-old female with history of dementia, hypothyroidism, hypertension, presented from [facility] for altered mental status. Toxic and Metabolic Encephalopathy: patient presented with AMS, suspect multifactorial secondary to new medication ABH gel (Ativan/Benadryl/Haldol) and dehydration, in addition to poor sleep, poor oral intake, and not taking medications. -afebrile, no leukocytosis, and UA and CXR unremarkable; no signs of infection -discontinue ABH gel -given IVF hydration -Increased patient's seroquel to 50mg hs -Symptoms improved TACOS: Cr 1.47, no previous labs to compare, suspect secondary to dehydration with recent poor oral intake. -Given IVF and creatinine improved to 1.11. -Patient does tolerate oral intake when encouraged Dementia: not at baseline (see above) -continue patient's Aricept -hold sedating medications, especially benzodiazepines in elderly with dementia -monitor for improvement Hypothyroidism with Elevated TSH: suspect secondary to noncompliance with levothyroxine, TSH over 15. -T3 low, T4 wnl -continue patient's Synthroid -repeat TSH in 6 weeks Hypertension: blood pressure was borderline hypotensive, home BP meds held, improving, suspect secondary to dehydration. Continue to hold lisinopril and follow up with PCP. Resume amlodipine. Pt Condition on Discharge: Stable Discharge Disposition: [facility] Discharge Time: > 30 minutes Discharge Instructions DIET: Follow Instructions for: As Tolerated, No Restrictions Speech Therapy-Diet Recommends: Regular Activities you can perform: Regular-No Restrictions Follow up Referrals: PCP Follow-up - 3-5 Days New Medications: Quetiapine (Quetiapine) 25 Mg Tab 50 MG PO DAILY@19 Agitation #60 TAB Continued Medications: Amlodipine (Amlodipine) 5 Mg Tab 5 MG PO DAILY Blood Pressure Management #30 Ref 0 TAB Donepezil (Donepezil) 10 Mg Tab 10 MG PO HS Dementia #30 Ref 0 TAB Levothyroxine (Levothyroxine) 125 Mcg Tab 125 MCG PO DAILY Thyroid #30 Ref 0 TAB Lorazepam (Ativan) 1 Mg Tab 1 MG PO DAILY PRN ANXIETY AND/OR AGITATION Ref 0 TAB Discontinued Medications: Diphenhydramine-Zinc Topical (Benadryl Extra Strength Topical) 2-0.1% Cream 1 APPLIC TOPICAL ONCE PRN ITCHING AND/OR RASH #1 Ref 0 TUBE Haloperidol (Haloperidol) 1 Mg Tab 1 MG PO DAILY Ref 0 TAB Lisinopril (Lisinopril) 20 Mg Tab 20 MG PO DAILY #30 Ref 0 TAB Quetiapine (Quetiapine) 25 Mg Tab 25 MG PO DAILY #30 Ref 0 TAB Syed Huddleston Feb 26, 2017 09:47
[2017-02-26] MEDS ORDERED: POTASSIUM CHLORIDE 10 MEQ CONTROLLED RELEASE TAB PO ONE (10:00)
[2017-02-26] MEDS: SODIUM CHLORIDE 0.9% FLUSH 10 ML FLUSH IV FLUSH SCH (10:08)
== END 2017-02-26 11:55 | disposition home or self-care (01) ==
LOC: NEPE 19:53 → NEDA 23:20 → NEPHCDU 02-24 00:03
PROVIDERS: ADMIT Hospitalist; ATTEND Hospitalist
DX: R41.82 Altered mental status, unspecified (principal); E86.0 Dehydration; R94.6 Abnormal results of thyroid function studies; N17.9 Acute kidney failure, unspecified; G92 Toxic encephalopathy; R06.83 Snoring; R32 Unspecified urinary incontinence; R00.1 Bradycardia, unspecified; I10 Essential (primary) hypertension; E78.5 Hyperlipidemia, unspecified; E78.00 Pure hypercholesterolemia, unspecified; E03.9 Hypothyroidism, unspecified; G30.9 Alzheimer's disease, unspecified; Z79.899 Other long term (current) drug therapy; R45.1 Restlessness and agitation
CPT/HCPCS: 71010; 76937; 80048; 80053; 81001; 82140; 82550; 84439; 84443; 84481; 84484; 85025; 85027; 85610; 85730; 87086; 92610; 93005; 96361; 96374; 97161; 99285; G0378; G8996; G8997; G8998; J1630; J2060; J7030; J7040; J7050; P9612